=== PATIENT | male | born 1955 | race Caucasian/White ===

== ENCOUNTER → 2018-03-19 | Outpatient (REF) ==
[~2018-03-19] MED LIST: PRED20TA6 PO; VALA100059 PO
--- NOTE | 2018-03-19 07:52 | RADIOLOGY IMAGING REPORT ---
FACILITY: [facility] - [place], [place] PATIENT NAME: Figueroa Aguilar : 1955 MR: [id number] V: [id number] EXAM DATE: ORDERING PHYSICIAN: MARIBELL MO TECHNOLOGIST: Location: [facility] Patient: Figueroa Aguilar : 1955 Visit/Account:[id number] Date of Sevice: 03/19/2018 CHEST: Indication: Dyspnea and hypoxia. Technique: Frontal and lateral views were obtained. Comparison: None. Skeletal and soft tissue structures: There are mild degenerative changes in the spine and shoulders. No acute skeletal deformity is identified. Heart and mediastinum: Within normal limits. Lung ray: Well-expanded and clear. No focal or diffuse opacities. No evidence of vascular congesti on. Pleural spaces: Unremarkable. Impression: No acute process. Report Dictated By: Candelario Carreno MD at 03/19/2018 7:46 AM Report E-Signed By: Candelario Carreno MD at 03/19/2018 7:48 AM WSN:[id number]
== END ==
LOC: RAD 07:04
PROVIDERS: ATTEND Registered Nurse Psychiatric/Mental Health
DX: R09.02 Hypoxemia (principal); R06.00 Dyspnea, unspecified
CPT/HCPCS: 71046